=== PATIENT | male | born 1980 | race Caucasian/White ===

== ENCOUNTER 2016-05-15 12:24 | Emergency (ER) | payer BC ==
[~2016-05-15] VITALS: Wt 78.0 kg
[~2016-05-15 12:24] MED LIST: FIORICET PO
--- NOTE | 2016-05-15 14:34 | ERD ---
ER Documentation Chief Complaint Date/Time DATE: 05/15/16 TIME: 14:31 Chief Complaint HEADACHE RADIATING TO NECK SINCE THIS MORNING. NO TRAUMA HPI 35-year-old male with a past medical history of diabetes, hypertension presents the ED complaining of a headache chronically for the last year. Reports that it has worsened today. Describes the pain as a throbbing sensation and rates it a 5 out of 10. States that he has been taking ibuprofen with relief of his pain. Denies any head or neck traumas. Denies any loss of consciousness. Denies any seizures, fever, chills, cough, rhinorrhea, chest pain, shortness of breath, nausea, vomiting. States that he has seen his neurologist and has obtained a MRI and is here for worsening pain. ROS All systems reviewed and are negative except as per history of present illness. Medications Home Meds Active Scripts Acetamin/Butalbital/Caffeine* (Fioricet*) [id number] Tab, 1 TAB PO Q6H Y for PAIN, #30 TAB Prov:SONYA DUMONT PA-C 02/10/16 Reported Medications [None] No Conflict Check 01/29/10 Allergies Allergies: Coded Allergies: No Known Drug Allergies (Verified Allergy, Mild, 02/10/16) PMhx/Soc History of Surgery: Yes (RIGHT ARM SX DUE TO BLOOD CLOT ) Anesthesia Reaction: No Hx Neurological Disorder: No Hx Respiratory Disorders: No Hx Cardiac Disorders: No Hx Psychiatric Problems: No Hx Miscellaneous Medical Probl: Yes (DM, HTN) Hx Alcohol Use: Yes (SOCIALLY) Hx Substance Use: No (LAST USED COCAINE 5 YEARS AGO) Hx Tobacco Use: No Smoking Status: Never smoker Physical Exam Vitals Vital Signs Date Time Temp Pulse Resp B/P Pulse Ox O2 Delivery O2 Flow Rate FiO2 05/15/16 12:30 98.8 72 20 124/72 98 Physical Exam Const: [id number], well-nourished. In no acute distress. Head: Atraumatic, normocephalic Eyes: Normal Conjunctiva without injection. No purulent discharge. PERRLA. EOMI ENT: Normal external ear. Ear canal without erythema. Tympanic membrane pearly riggs without effusion or bulging. Nasal canal clear with normal turbinates. Moist oropharynx without tonsillar exudates. Non-erythematous pharynx. Uvula midline. No drooling. No trismus. Neck: No cervical midline tenderness. Full range of motion. No meningismus. No cervical lymphadenopathy. No JVD. Resp: Clear to auscultation bilaterally. No wheezing, rhonchi, rales, or crackles. No accessory muscle use. No retractions. Cardio: Regular rate and rhythm. No murmurs, rubs or gallops. Skin: Normal skin turgor. No petechiae or rashes Ext: No cyanosis, or edema. Distal pulses intact bilaterally. Neur: Awake and alert. Normal gait. Normal coordination. Cranial Nerves II- VII intact. Normal finger to nose. Muscle strength 5/5. Sensation intact. Psych: Normal Mood and Affect Procedures/MDM 35-year-old male with a past medical history of diabetes presents the ED complaining of a headache. Patient is afebrile and nontoxic-appearing. Patient has normal vital signs. This is a same headache that patient has experienced last year. In January a CT of the brain without conscious pain at that time. PROCEDURE: HEAD CT CLINICAL INDICATION: Headache. TECHNIQUE: Noncontrast head CT was completed with coronal and sagittal reformats. DLP (mGy.cm): 634.23 CTDlvol (mGy) : 39.64 COMPARISON: None. FINDINGS: There is no acute intracranial hemorrhage, mass effect or midline shift. There is no hydrocephalus. There is no CT evidence of acute infarction. There is an incidental left retrocerebellar 3.5 cm arachnoid cyst. There is a left sphenoid sinus mucous retention cyst. IMPRESSION: 1. No acute intracranial abnormality. 2. Incidental left retrocerebellar 3.5 cm benign arachnoid cyst. 3. Left sphenoid sinus mucous retention cyst. There is a suspicion for intracranial bleed, subarachnoid hemorrhage, subdural hematoma, epidural hematoma, meningitis, TIA, stroke, seizures or other emergent conditions. Follow up with primary care physician in 1-2 days. Patient stated that he will follow-up with the neurologist at this time. Instructed patient to return to the ED sooner for any worsening symptoms. Patient's questions were answered. Patient understood and agreed with discharge plan. Patient discharged stable. Departure Diagnosis: Primary Impression: Headache Headache type: unspecified Headache chronicity pattern: unspecified pattern Intractability: not intractable Qualified Code: R51 - Nonintractable headache, unspecified chronicity pattern, unspecified headache type Condition: Stable Patient Instructions: Headache, Unspecified Referrals: [facility] YOU HAVE RECEIVED A MEDICAL SCREENING EXAM AND THE RESULTS INDICATE THAT YOU DO NOT HAVE A CONDITION THAT REQUIRES URGENT TREATMENT IN THE EMERGENCY DEPARTMENT. FURTHER EVALUATION AND TREATMENT OF YOUR CONDITION CAN WAIT UNTIL YOU ARE SEEN IN YOUR DOCTORS OFFICE WITHIN THE NEXT 1-2 DAYS. IT IS YOUR RESPONSIBILITY TO MAKE AN APPOINTMENT FOR FOLOW-UP CARE. IF YOU HAVE A PRIMARY DOCTOR --you should call your primary doctor and schedule an appointment IF YOU DO NOT HAVE A PRIMARY DOCTOR YOU CAN CALL OUR PHYSICIAN REFERRAL HOTLINE AT IF YOU CAN NOT AFFORD TO SEE A PHYSICIAN YOU CAN CHOSE FROM THE FOLLOWING [facility] [address] [facility] [address] [facility] [facility] [address] [facility] [address] [facility] [address] [facility] [address] [facility] [facility] YOU HAVE RECEIVED A MEDICAL SCREENING EXAM AND THE RESULTS INDICATE THAT YOU DO NOT HAVE A CONDITION THAT REQUIRES URGENT TREATMENT IN THE EMERGENCY DEPARTMENT. FURTHER EVALUATION AND TREATMENT OF YOUR CONDITION CAN WAIT UNTIL YOU ARE SEEN IN YOUR DOCTORS OFFICE WITHIN THE NEXT 1-2 DAYS. IT IS YOUR RESPONSIBILITY TO MAKE AN APPOINTMENT FOR FOLOW-UP CARE. IF YOU HAVE A PRIMARY DOCTOR --you should call your primary doctor and schedule and appointment IF YOU DO NOT HAVE A PRIMARY DOCTOR YOU CAN CALL OUR PHYSICIAN REFERRAL HOTLINE AT . IF YOU CAN NOT AFFORD TO SEE A PHYSICIAN YOU CAN CHOSE FROM THE FOLLOWING [facility] INSTITUTIONS: [facility] [address] [place] [address] [facility] [address] [place] [address] [facility] [address] [place] [address] [facility] Additional Instructions: FOLLOW UP WITH YOUR neurologist tomorrow. Return to this facility if you are not improving as expected. SENAIT MARSHALL PA-C May 15, 2016 14:34
[2016-05-15 14:40] VITALS: BP 126/75; PULSE 72; RESP 19; TEMP 98
== END 2016-05-15 14:41 | disposition home or self-care (01) ==
LOC: FTE 12:24
DX: R51 Headache (principal); I10 Essential (primary) hypertension; E11.9 Type 2 diabetes mellitus without complications

== ENCOUNTER 2016-07-12 09:33 | Emergency (ER) | payer BC ==
[~2016-07-12] VITALS: Wt 76.0 kg
--- NOTE | 2016-07-12 11:14 | ERD ---
ER Documentation Chief Complaint Date/Time DATE: 07/12/16 TIME: 11:12 Chief Complaint CHEST PAIN X 1 DAY HPI This a 35-year-old male who presents to the emergency department today complaining of chest pain. He states that the pain started last night after he was eating and then resolved when he went to bed and then returned this morning. Patient states he has also been feeling some increased stress in his life. States he took Advil. States the pain is substernal and nonradiating. Denies any shortness of breath. States he used cocaine and drink alcohol on Friday after not having used either of them for a couple of months. ROS All systems reviewed and are negative except as per history of present illness. Medications Home Meds Active Scripts Acetaminophen* (Tylophen*) 500 Mg Capsule, 1 CAP PO Q6H Y for PAIN AND OR ELEVATED TEMP, #30 CAP Prov:NATA ALVES PA-C 07/12/16 Naproxen* (Naprosyn*) 500 Mg Tablet, 500 MG PO BID Y for PAIN AND/OR INFLAMMATION, #30 TAB Prov:NATA ALVES PA-C 07/12/16 Acetamin/Butalbital/Caffeine* (Fioricet*) [id number] Tab, 1 TAB PO Q6H Y for PAIN, #30 TAB Prov:SONYA DUMONT PA-C 02/10/16 Reported Medications [None] No Conflict Check 01/29/10 Allergies Allergies: Coded Allergies: No Known Drug Allergies (Verified Allergy, Mild, 07/12/16) PMhx/Soc History of Surgery: Yes (RIGHT ARM SX DUE TO BLOOD CLOT ) Anesthesia Reaction: No Hx Neurological Disorder: No Hx Respiratory Disorders: No Hx Cardiac Disorders: No Hx Psychiatric Problems: No Hx Miscellaneous Medical Probl: Yes (DM, HTN) Hx Alcohol Use: Yes (SOCIALLY) Hx Substance Use: No (LAST USED COCAINE 5 YEARS AGO) Hx Tobacco Use: No Smoking Status: Never smoker Physical Exam Vitals Vital Signs Date Time Temp Pulse Resp B/P Pulse Ox O2 Delivery O2 Flow Rate FiO2 07/12/16 09:35 98.0 71 18 137/65 99 Physical Exam Const: No acute distress Head: Atraumatic Eyes: Normal Conjunctiva ENT: Normal External Ears, Nose and Mouth. Neck: Full range of motion..~ No meningismus. Resp: Clear to auscultation bilaterally. No absent breath sounds. No wheezing. Chest wall tenderness with substernal palpation. Cardio: Regular rate and rhythm, no murmurs Abd: Soft, non tender, non distended. Normal bowel sounds Skin: No petechiae or rashes Neur: Awake and alert Psych: Normal Mood and Affect Results 24 hrs Laboratory Tests Test 07/12/16 10:59 Troponin I < 0.012ng/ml Current Medications Medications (Trade) Dose Ordered Sig/Xenia Route PRN Reason Start Time Stop Time Status Last Admin Dose Admin Ibuprofen (Motrin) 800 mg ONCE ONCE PO 07/12/16 12:30 07/12/16 12:31 Procedures/MDM This a 35-year-old male who presents the emergency department today complaining of substernal chest pain that is nonradiating that started last night, resolved and then returned again approximately 1 hour prior to arrival. Patient has recently been drinking alcohol and using cocaine and therefore did obtain an EKG and troponin EKG read and interpreted by Dr. Cueva rate [address] elevation. No QT prolongation. Normal sinus rhythm. Troponin less than 0.012 Patient denied any shortness of breath. His oxygen saturation is 99%. He is not tachycardic. Do not feel the patient requires a chest x-ray at this time. Low suspicion for PE, pleural effusion, pneumothorax, abscess, pneumonia Patient was given Motrin here in the emergency department. Patient has substernal chest pain of uncertain etiology however may be related to costochondritis. Low suspicion for cardiac cause. Patient was instructed to stop abusing drugs and alcohol. Patient will be given a prescription for Naprosyn and Tylenol for home. At this time the patient is stable for discharge and outpatient management. Patient should follow up with their PCP in the next 1-2 days. They may return to the emergency department sooner for any persistent or worsening of symptoms. Patient understood and agreed with the plan. Discussed the patient with Dr. Cueva and he is in agreement with the plan. Departure Diagnosis: Primary Impression: Chest pain Chest pain type: unspecified Qualified Code: R07.9 - Chest pain, unspecified type Condition: NATA Allison PA-C Jul 12, 2016 11:14
[2016-07-12] MEDS ORDERED: NAPR-260 PO (12:28)
[2016-07-12] MEDS ORDERED: ACET500C5 PO (12:29)
[2016-07-12] MEDS ORDERED: IBUPROFEN 800 MG TAB PO ONE (12:30)
== END 2016-07-12 12:39 | disposition home or self-care (01) ==
LOC: FTE 09:33
DX: R07.9 Chest pain, unspecified (principal); I10 Essential (primary) hypertension; E11.9 Type 2 diabetes mellitus without complications
CPT/HCPCS: 84484; 93005; Z7502; Z7610